=== PATIENT | female | born 1965 ===

== ENCOUNTER 2024-12-02 00:52 | Day surgery (SDC) | payer OTHER, SELFPAY ==
[2024-12-01 13:47] VITALS: BMI 38.2
--- NOTE | 2024-12-02 07:44 | WPDANESEPP ---
Anes - Eval Pre Procedure Procedure: Operation Date: 12/02/24 09:00 Proposed Procedures p Esophagogastroduodenoscopy & Colonoscopy - Quan Arcos MD Date/Time: 12/02/24 07:44 Surgeon: Isrrael Pre Op Diagnosis: hx of colon polyps, other cirrhosis of liver Patient Data Age: 59 Gender: F Height: 1.63 m Weight: 101 kg Home Medications ?Medication ?Instructions ?Recorded ?Confirmed ?Type albuterol sulfate 90 mcg/actuation 2 inh inhalation QID PRN shortness 12/01/24 12/01/24 History breath activated powder inhaler of breath or wheezing amitriptyline 25 mg tablet 25 mg PO HS 12/01/24 12/01/24 History buspirone 15 mg tablet 15 mg PO BID 12/01/24 12/01/24 History hydrochlorothiazide 25 mg tablet 25 mg PO DAILY 12/01/24 12/01/24 History levetiracetam 500 mg tablet 750 mg PO BID 12/01/24 12/01/24 History levothyroxine 75 mcg capsule 75 mcg PO DAILY 12/01/24 12/01/24 History naproxen 250 mg tablet 250 mg PO BID PRN pain 12/01/24 12/01/24 History tiotropium bromide 18 mcg capsule 1 cap inhalation DAILY 12/01/24 12/01/24 History with inhalation device topiramate 100 mg tablet 100 mg PO BID 12/01/24 12/01/24 History venlafaxine 37.5 mg 37.5 mg PO DAILY 12/01/24 12/01/24 History capsule,extended release 24 hr Patient hx anesthesia problems: none Family hx anesthesia problems: none Results Review: All pre-operative results and documents have been reviewed as part of the pre-operative evaluation. [facility] Past Medical History Medical History Anxiety Hypothyroidism Cirrhosis COPD (chronic obstructive pulmonary disease) Hypertension Seizure Social History Social History Tobacco type: cigarettes Living arrangements: incarcerated Exam Day of Procedure 12/02/24 07:44
[2024-12-02 07:56] VITALS: BP 163/94; PULSE 72; RESP 20; TEMP 36.2; O2SAT 95
[2024-12-02] MEDS: LACTATED RINGERS 1,000 ML 150 ML IV CONT (08:23)
--- NOTE | 2024-12-02 08:37 | PM.IMHP ---
H&P: HPI History of Present Illness Date/Time: 12/02/24 08:37 Chief Complaint: Heartburn- surveillance colonoscopy Narrative: this patient is complaining of intermittent heartburn and occasional dysphagia to solids. He has never had an EGD. in addition, she is also referred for a screening colonoscopy. She has a history of polyps and her last colonoscopy was more than 5 years ago. Review of Systems Review of Systems: All systems reviewed & are unremarkable except as noted in HPI and below PMFSH Past Medical History Medical History Anxiety Hypothyroidism Cirrhosis COPD (chronic obstructive pulmonary disease) Hypertension Seizure Social History Social History Tobacco type: cigarettes Living arrangements: incarcerated Meds Home Medications and Allergies Home Medications ?Medication ?Instructions ?Recorded ?Confirmed ?Type albuterol sulfate 90 mcg/actuation 2 inh inhalation QID PRN shortness 12/01/24 12/01/24 History breath activated powder inhaler of breath or wheezing amitriptyline 25 mg tablet 25 mg PO HS 12/01/24 12/02/24 History buspirone 15 mg tablet 15 mg PO BID 12/01/24 12/02/24 History hydrochlorothiazide 25 mg tablet 25 mg PO DAILY 12/01/24 12/02/24 History levetiracetam 500 mg tablet 750 mg PO BID 12/01/24 12/02/24 History levothyroxine 75 mcg capsule 75 mcg PO DAILY 12/01/24 12/02/24 History naproxen 250 mg tablet 250 mg PO BID PRN pain 12/01/24 12/01/24 History tiotropium bromide 18 mcg capsule 1 cap inhalation DAILY 12/01/24 12/02/24 History with inhalation device topiramate 100 mg tablet 100 mg PO BID 12/01/24 12/02/24 History venlafaxine 37.5 mg 37.5 mg PO DAILY 12/01/24 12/02/24 History capsule,extended release 24 hr Allergies Allergy/AdvReac Type Severity Reaction Status Date / Time Penicillins AdvReac Hives Verified 12/02/24 07:55 Vital Signs Vital Signs - 24 hr 12/02/24 07:56 Temperature 97.2 F L Pulse Rate 72 Respiratory Rate 20 Blood Pressure 163/94 H Pulse Oximetry 95 Oxygen Delivery Room Air Exam Const: General: cooperative and healthy appearing Resp: Effort & Inspection: normal respiratory effort and able to speak in complete sentences Auscultation: clear to auscultation bilaterally Cardio: Rate: regular rate Rhythm: regular rhythm GI: Inspection: normal to inspection GI Palp: No No hepatosplenomegaly present Auscultation: normal bowel sounds Rectal Exam: deferred Skin: General skin exam: normal color Psych: Appearance: grossly normal Mental Status: mental status grossly normal Assessment and Plan Assessment and plan (1) History of colonic polyps: Code(s): Z86.0100 - Personal history of colon polyps, unspecified Status: Acute Assessment and Plan: The patient is deemed a good candidate for the procedures. Consent signed. Will proceed. (2) GERD (gastroesophageal reflux disease): Code(s): K21.9 - Gastro-esophageal reflux disease without esophagitis Status: Acute
--- NOTE | 2024-12-02 08:55 | P.PNAN_ITS ---
Anes - Eval Final PreProcedure Day of Procedure 12/02/24 08:55 Patient weight: obese Heart: regular rate and rhythm Lungs: clear to auscultation and decreased breath sounds Airway: Mallampati scale class III and special considerations large tongue and poor dentition (advanced decay ) Neurological: alert and oriented Last oral intake: >/= 8 hours ASA classification: III Emergent: no Anesthetic plan: proceed Anesthesia type and monitoring: general GIVS and standard monitoring Results Review: All pre-operative results and documents have been reviewed as part of the pre- operative evaluation. Informed Consent: The patient's anesthetic plan and its attendant risks and benefits were discussed with the patient/family/POA. Questions were solicited and answers provided to the satisfaction of the patient/family/POA.
[2024-12-02] MEDS: BENZOCAINE (*SP) 60 ML SPRAY CAN (HURRICAINE) 1 SPRAY MUCOUS MEM (09:15)
[2024-12-02 09:41] VITALS: BP 99/63; PULSE 65; RESP 20; O2SAT 96
[2024-12-02 09:51] VITALS: BP 103/61; PULSE 63; RESP 20; O2SAT 97
[2024-12-02 10:01] VITALS: BP 128/80; PULSE 60; RESP 20; O2SAT 100
--- OUTSIDE RECORDS SUMMARY | 2024-12-03 20:58 | XMS_ITS | Clinical Summary ---
Author Organization [facility] Address [address] [place] [address]. [place] [address] [place] [address] Care Team Providers Care Compliance Assistant Name Role Phone Johan Rivero MD, Miguel Primary Care Provider [phone] Social History Tobacco Use Types Packs/Day Years Used Date Smoking Tobacco: Never Assessed Comments No Sex and Gender Information Value Date Recorded Sex Assigned at Not on file Legal Sex Female 8:54 AM CDT Gender Identity Not on file Sexual Orientation Not on file Plan of Treatment Health Maintenance Due Date Last Done Comments Cervical Cancer Screening Pa p Smear (Age 30 to 64) Every 3 Years 1963 Colorectal Cancer Screening Colonoscopy (10 Years) 1963 Annual Physical 1966 Pneumococcal Vaccine: Pediatrics (0 to 5 Years) and At-Risk Patients (6 to 64 Years) (1 of 2 - PCV) 1969 Hepatitis C 1981 DTaP, Tdap and Td Vaccines ( 1 - Tdap) 1982 Cervical Cancer Screening Pa p with HPV Testing (Age 30 to 64) Every 5 Years 1993 Cervical Cancer Screening wi th HPV 1993 Zoster Vaccines (1 of 2) 2013 RSV Immunization or 60+ Years (1 - Risk 60-74 years 1-dose series) 2023 COVID-19 Vaccine (2023-2 5 season) 2024 Influenza Adult (#1) 2024 Mammogram Screening 08/13/2026 08/13/2024, 07/08/2024 Meningococcal Vaccine Aged Out No tila sienna eligible based on patient's age to complete this topic RSV Immunizations Under 20 Months Aged Out No longer eligible b ased on patient's age to complete this topic Procedures Procedure Name Priority Date/Time Associated Diagnosis Comments MG DIAG ADD VIEW W JESSICA SARAH Routine 08/13/2024 10:19 AM CDT Masses of both breasts from Last 3 Months or Most Recently Relevant to Health Maintenance Results * MG DIAG ADD VIEW W JESSICA SARAH (08/13/2024 10:19 AM CDT) Anatomical Region Laterality Modality Breast Bilateral Computed Tomogra phy, Other, Computed Tomography 08/13/2024 11:2 4 AM CDT Impressions 08/13/2024 11:40 AM CDT ===== IMPRESSION: ===== 1. ??No mammographic findings suggestive of malignancy. Assessment: ACR BI-RADS 2 - BENIGN FINDING(S) Recommendation: 1: Routine Screening Bilateral Comments: Ordered By: MARYURI VICENTE Interpreted By: Karlos Arredondo, 08/13/2024 11:24 AM Narrative 08/13/2024 11:40 AM CDT [address] [place] [id number] Examination: Diagnostic bilateral mammogram and bilateral breast ultrasound [id number] Exam Date/Time: 08/13/2024 10:00 AM Reason For Exam: ??masses on both breasts ? Comparison: Baseline 07/08/2024 exam Technique: Bilateral diagnostic mammography and bilateral breast ultrasound including sonographic grayscale images projections targeted in the region of interest. ??Doppler used to assess vasculature. 3D tomographic images were obtained. Tissue density: There are scattered areas of fibroglandular density. Findings: ?? Mammogram: No suspicious microcalcification, architectural distortion, or mass.. On spot compression images, there is well-defined nodule within the medial and anterior aspect of the right breast with subtle peripheral calcifications. Consistent with a benign oil cyst.. Within the slightly medial and mid aspect of the left breast, there is low density well-defined nodule on spot compression images. Appearance of probable benign lymph node. No malignant microcalcifications. Right breast ultrasound: Imaging at the 2:30 o'clock position of the right breast. 5 cm from the nipple. There is a well-defined hypoechoic shadowing lesion consistent with an oil ??cyst. No abnormal color flow. Measures 4.7 x 3.2 x 4.1 mm. Left breast ultrasound: Imaging at the 11:00 position the left breast. 10 cm from the nipple. There is an underlying hypoechoic nodule with hyperechoic central portion with mild flow to the hilum. Consistent with benign lymph node. No abnormal color flow. No shadowing foci. Maryuri BADILLO MAMMO Final Resul t from Last 3 Months or Most Recently Relevant to Health Maintenance Insurance [facility] Care Teams Compliance Assistant Relationship Specialty Start Date End Date Miguel Prado MD [facility] [address] [place] [address] PCP - General INTERNAL MEDICINE 07/08/24
== END 2024-12-02 10:23 | disposition home or self-care (01) ==
PROVIDERS: Visit Provider Internal Medicine Gastroenterology
PROC: 0DJ08ZZ Inspection of Upper Intestinal Tract, Via Natural or Artificial Opening Endoscopic (ICD-10-PCS; CPT 45378; principal; 2024-12-02 09:00)
DX: Z12.11 Encounter for screening for malignant neoplasm of colon (principal); K21.00 Gastro-esophageal reflux disease with esophagitis, without bleeding; K29.30 Chronic superficial gastritis without bleeding; I10 Essential (primary) hypertension; E03.9 Hypothyroidism, unspecified; F41.9 Anxiety disorder, unspecified; K74.60 Unspecified cirrhosis of liver; J44.9 Chronic obstructive pulmonary disease, unspecified; R56.9 Unspecified convulsions; E66.9 Obesity, unspecified; Z68.38 Body mass index [BMI] 38.0-38.9, adult; Z79.51 Long term (current) use of inhaled steroids; Z79.1 Long term (current) use of non-steroidal anti-inflammatories (NSAID); Z86.0100 Personal history of colon polyps, unspecified
CPT/HCPCS: 43239; 45378; 88305; J7120